=== PATIENT | female | born 1940 | race Caucasian/White ===

== ENCOUNTER 2024-01-07 13:49 | Inpatient (IN) | payer MEDICARE, OTHER ==
[2024-01-07 15:11] LABS: #Basophils 0.05 10x3/uL (0.0-0.2); %Basophils 0.3 % (0.0-1.0); %Eosinophils 0.2 % (0.0-10.0); %Lymphocytes 18.1 % (21.0-51.0); %Monocytes 6.7 % (0.0-10.0); %Neutrophils 73.9 % (42.0-75.0); Hematocrit 17.8 % (36.0-47.0); Hemoglobin 5.6 g/dL (12.0-16.0); Mean Corpuscular HGB CONC 31.5 g/dL (32.0-36.0); Mean Platelet Volume 9.7 fL (7.4-10.4); Platelet Count 473 10x3/uL (130-400); RBC Distribution Width 22.9 % (11.5-14.5)
[2024-01-07 15:22] LABS: INR-International Normal Ratio 1.1; Prothrombin Time 14.4 sec (12.0-14.7)
[2024-01-07 15:23] LABS: PTT 39.3 sec (22.9-36.1)
[2024-01-07 15:31] LABS: ALT (SGPT) 10 U/L (8-55); AST (SGOT) 20 U/L (5-34); Albumin 2.5 g/dL (3.4-4.8); Alkaline Phosphatase 100 U/L (40-110); Anion Gap 10 mmol/L (10-20); BUN (Urea Nitrogen) 15 mg/dL (9.8-20.1); Bilirubin, Total 0.5 mg/dL (0.2-1.2); Calc. Creatinine Clearance 0 mL/min (70-130); Calcium 8.8 mg/dL (7.8-10.44); Carbon Dioxide 30 mmol/L (23-31); Chloride 100 mmol/L (98-107); Estimated GFR 59; Globulin 3.6 g/dL (2.4-3.5); Glucose 118 mg/dL (83-110); Potassium 2.7 mmol/L (3.5-5.1); Protein, Total 6.1 g/dL (5.8-8.1); Sodium 137 mmol/L (136-145)
[2024-01-07 16:04] LABS: Iron 414 ug/dL (50-170); Iron Binding Capacity, Total 228 mcg/dL (265-497)
[2024-01-07] MEDS ORDERED: Potassium Chloride 20 MEQ TAB ONE (16:59)
[2024-01-07] MEDS ORDERED: Guaifenesin DM 100-10/5 ML UDCUP PO PRN (18:07)
[2024-01-07] MEDS ORDERED: Ondansetron PF 4 MG/2 ML Vial IVP PRN (18:07)
[2024-01-07] MEDS: Gabapentin 100 MG CAP PO SCH (21:24)
[2024-01-08 05:20] LABS: ALT (SGPT) 10 U/L (8-55); AST (SGOT) 28 U/L (5-34); Albumin 2.6 g/dL (3.4-4.8); Alkaline Phosphatase 104 U/L (40-110); Anion Gap 10 mmol/L (10-20); BUN (Urea Nitrogen) 11 mg/dL (9.8-20.1); Bilirubin, Total 1.2 mg/dL (0.2-1.2); Calc. Creatinine Clearance 53 mL/min (70-130); Calcium 8.6 mg/dL (7.8-10.44); Carbon Dioxide 28 mmol/L (23-31); Chloride 101 mmol/L (98-107); Estimated GFR 77; Globulin 3.7 g/dL (2.4-3.5); Glucose 113 mg/dL (83-110); Potassium 3.3 mmol/L (3.5-5.1); Protein, Total 6.3 g/dL (5.8-8.1); Sodium 136 mmol/L (136-145)
[2024-01-08 06:03] LABS: #Basophils 0.09 10x3/uL (0.0-0.2); %Basophils 0.5 % (0.0-1.0); %Eosinophils 0.3 % (0.0-10.0); %Lymphocytes 14.6 % (21.0-51.0); %Monocytes 6.8 % (0.0-10.0); %Neutrophils 75.8 % (42.0-75.0); Hematocrit 33.7 % (36.0-47.0); Hemoglobin 10.4 g/dL (12.0-16.0); Mean Corpuscular HGB CONC 30.9 g/dL (32.0-36.0); Mean Corpuscular Hemoglobin 25.9 pg (27.0-31.0); Mean Corpuscular Volume 83.8 fL (78.0-98.0); Mean Platelet Volume 9.2 fL (7.4-10.4); Platelet Count 464 10x3/uL (130-400); RBC Distribution Width 21.2 % (11.5-14.5); Red Blood Cell (RBC) Count 4.02 mill/uL (4.20-5.40)
[2024-01-08] MEDS: Ferrous Sulfate 325 MG TAB PO SCH (09:35)
[2024-01-08] MEDS: Cefdinir 300 MG CAP PO SCH (09:36)
[2024-01-08] MEDS: Pantoprazole DR 40 MG TAB PO SCH (09:36)
[2024-01-08] MEDS: Multivit, Therapeutic 1 TAB PO SCH (09:36)
[2024-01-08 10:38] VITALS: BMI 22.1
[2024-01-08] MEDS: Acetaminophen 325 MG TAB PO PRN (12:29)
[2024-01-08 14:11] LABS: Hematocrit 28.1 % (36.0-47.0); Hemoglobin 8.9 g/dL (12.0-16.0); Platelet Count 405 10x3/uL (130-400)
[2024-01-08 20:43] LABS: INR-International Normal Ratio 1.1; Prothrombin Time 14.4 sec (12.0-14.7)
[2024-01-08 20:44] LABS: PTT 31.2 sec (22.9-36.1)
[2024-01-08] MEDS: Potassium Chloride 20 MEQ TAB PO SCH (21:31)
[2024-01-08] MEDS: Potassium Chloride 20 MEQ in Premix 1 BAG IVPB SCH (21:32)
[2024-01-08] MEDS: Pantoprazole 40 MG VIAL IVP SCH (21:32)
[2024-01-08] MEDS: Potassium Chloride 40 MEQ in Premix 1 BAG IVPB SCH (21:44)
[2024-01-08 23:29] LABS: Hematocrit 29.8 % (36.0-47.0); Hemoglobin 9.2 g/dL (12.0-16.0); Platelet Count 399 10x3/uL (130-400)
[2024-01-09 05:34] LABS: Hematocrit 29.3 % (36.0-47.0); Hemoglobin 9.1 g/dL (12.0-16.0); Platelet Count 427 10x3/uL (130-400)
[2024-01-09 05:45] LABS: INR-International Normal Ratio 1.1; Prothrombin Time 14.4 sec (12.0-14.7)
[2024-01-09 05:46] LABS: PTT 33.1 sec (22.9-36.1)
[2024-01-09] MEDS: Potassium Chloride 20 MEQ TAB PO SCH (15:28)
[2024-01-09 17:17] VITALS: BP 133/74; TEMP 98.9
== END 2024-01-09 17:34 | disposition home or self-care (01) | DRG 812 ==
LOC: ERS 13:49 → MSONC 16:36 → OBSVTOIN 01-08 17:09
PROVIDERS: ADMIT Internal Medicine; ATTEND Internal Medicine
PROC: 30233N1 Transfusion of Nonautologous Red Blood Cells into Peripheral Vein, Percutaneous Approach (ICD-10-PCS; principal; 2024-01-07)
DX: D62 Acute posthemorrhagic anemia (principal); C79.9 Secondary malignant neoplasm of unspecified site; D50.9 Iron deficiency anemia, unspecified; D63.0 Anemia in neoplastic disease; M81.0 Age-related osteoporosis without current pathological fracture; C54.1 Malignant neoplasm of endometrium; E87.6 Hypokalemia; Z98.891 History of uterine scar from previous surgery; Z98.51 Tubal ligation status
CPT/HCPCS: 36415; 36416; 36430; 36591; 51798; 70553; 76376; 80053; 82728; 83010; 83540; 83550; 83615; 85014; 85018; 85025; 85046; 85049; 85610; 85730; 86850; 86900; 86901; 96365; 96366; 99212; 99284; A9579; G0378; G0463; J2470; J2916; J3480; J7050; P9016

== ENCOUNTER 2024-03-09 11:45 | Outpatient (CLI) | payer MEDICARE, OTHER | END 2024-03-09 11:46 | disposition home or self-care (01) | LOC: PET 11:45 | PROVIDERS: ATTEND Internal Medicine Hematology & Oncology | DX: C53.8 Malignant neoplasm of overlapping sites of cervix uteri (principal); R59.0 Localized enlarged lymph nodes | CPT/HCPCS: 78815; A9552 ==

== ENCOUNTER 2024-05-14 10:33 | Outpatient (CLI) | payer MEDICARE | END 2024-05-14 10:34 | disposition home or self-care (01) | LOC: SCSMRI 10:33 | PROVIDERS: ATTEND Internal Medicine Hematology & Oncology | DX: C53.8 Malignant neoplasm of overlapping sites of cervix uteri (principal); R94.02 Abnormal brain scan; R90.89 Other abnormal findings on diagnostic imaging of central nervous system | CPT/HCPCS: 70553; 76376 ==

== ENCOUNTER 2024-12-21 09:37 | Outpatient (CLI) | payer OTHER ==
[2024-12-21] MEDS ORDERED: Iopamidol 370 76% 100 ML VIAL ONE (14:49)
== END 2024-12-21 09:38 | disposition home or self-care (01) ==
LOC: CT 09:37
PROVIDERS: ATTEND Internal Medicine Hematology & Oncology
DX: C54.3 Malignant neoplasm of fundus uteri (principal); C53.8 Malignant neoplasm of overlapping sites of cervix uteri; D50.8 Other iron deficiency anemias; K76.9 Liver disease, unspecified; M79.89 Other specified soft tissue disorders
CPT/HCPCS: 71260; 74177; Q9967

== ENCOUNTER 2025-01-06 09:38 | Outpatient (CLI) | payer MEDICARE | END 2025-01-06 09:39 | disposition home or self-care (01) | LOC: SCSMRI 09:38 | PROVIDERS: ATTEND Internal Medicine Hematology & Oncology | DX: C54.3 Malignant neoplasm of fundus uteri (principal); C53.8 Malignant neoplasm of overlapping sites of cervix uteri; D50.8 Other iron deficiency anemias; M48.02 Spinal stenosis, cervical region | CPT/HCPCS: 72156 ==

== ENCOUNTER 2025-02-15 20:48 | Inpatient (IN) | payer OTHER ==
[~2025-02-15 20:48] MED LIST: Iopamidol-370 76% 500 ML MDV (1 ML CHARGE) ONE
[2025-02-15 22:13] LABS: #Basophils 0.04 10x3/uL (0.0-0.2); #Eosinophils Less than 0.03 10x3/uL (0.0-0.7); #Monocytes 0.83 10x3/uL (0.11-0.59); #Neutrophils 12.53 10x3/uL (1.40-6.50); %Basophils 0.3 % (0.0-1.0); %Eosinophils 0.1 % (0.0-10.0); %Lymphocytes 12.1 % (21.0-51.0); %Monocytes 5.4 % (0.0-10.0); %Neutrophils 81.3 % (42.0-75.0); Hematocrit 40.3 % (36.0-47.0); Hemoglobin 13.9 g/dL (12.0-16.0); Mean Corpuscular Hemoglobin 30.8 pg (27.0-31.0); Mean Corpuscular Volume 89.4 fL (78.0-98.0); Platelet Count 219 10x3/uL (130-400); Red Blood Cell (RBC) Count 4.51 mill/uL (4.20-5.40); White Blood Cell (WBC) Count 15.41 10x3/uL (4.8-10.8)
[2025-02-15 22:27] LABS: INR-International Normal Ratio 1.1; Prothrombin Time 14.7 sec (12.0-14.7)
[2025-02-15 22:28] LABS: PTT 56.4 sec (22.9-36.1)
[2025-02-15 22:29] LABS: ALT (SGPT) 23 U/L (Less than 34); AST (SGOT) 25 U/L (11-34); Albumin 3.0 g/dL (3.1-4.5); Alkaline Phosphatase 155 U/L (40-110); Anion Gap 19 mmol/L (10-20); BUN (Urea Nitrogen) 34 mg/dL (9.8-20.1); Bilirubin, Total 0.7 mg/dL (0.3-1.2); Calc. Creatinine Clearance 0 mL/min (70-130); Calcium 8.9 mg/dL (7.8-10.44); Carbon Dioxide 23 mmol/L (23-31); Chloride 102 mmol/L (98-107); Globulin 3.9 g/dL (2.4-3.5); Glucose 169 mg/dL (83-110); Potassium 4.0 mmol/L (3.5-5.1); Sodium 140 mmol/L (136-145)
[2025-02-16] MEDS ORDERED: Calcium Carbonate 500 MG ChewTAB PO PRN (01:02)
[2025-02-16] MEDS ORDERED: Melatonin 3 MG TAB PO PRN (01:02)
[2025-02-16] MEDS ORDERED: Ondansetron PF 4 MG/2 ML Vial IVP PRN (01:02)
[2025-02-16] MEDS ORDERED: Acetaminophen 325 MG TAB PO PRN (01:02)
[2025-02-16] MEDS ORDERED: Electrolyte Replacement Protocol 1 EACH FS SCH (01:15)
[2025-02-16] MEDS ORDERED: Magnesium 2 GM/50 ML(in water) 2 GM in Premix 1 BAG IVPB PRN (01:45)
[2025-02-16] MEDS ORDERED: PHOS-NAK 1 PKT PACK PO PRN (01:45)
[2025-02-16] MEDS ORDERED: Potassium Chloride 20 MEQ in Premix 1 BAG IVPB PRN (01:45)
[2025-02-16 02:50] VITALS: BMI 20.7
[2025-02-16 04:55] LABS: #Basophils 0.05 10x3/uL (0.0-0.2); #Eosinophils Less than 0.03 10x3/uL (0.0-0.7); #Monocytes 1.06 10x3/uL (0.11-0.59); #Neutrophils 9.71 10x3/uL (1.40-6.50); %Basophils 0.4 % (0.0-1.0); %Eosinophils 0.1 % (0.0-10.0); %Lymphocytes 19.0 % (21.0-51.0); %Monocytes 7.8 % (0.0-10.0); %Neutrophils 71.4 % (42.0-75.0); Hematocrit 38.4 % (36.0-47.0); Hemoglobin 12.6 g/dL (12.0-16.0); Mean Corpuscular Hemoglobin 30.7 pg (27.0-31.0); Mean Corpuscular Volume 93.4 fL (78.0-98.0); Platelet Count 180 10x3/uL (130-400); Red Blood Cell (RBC) Count 4.11 mill/uL (4.20-5.40); White Blood Cell (WBC) Count 13.61 10x3/uL (4.8-10.8)
[2025-02-16 05:17] LABS: ALT (SGPT) 18 U/L (Less than 34); AST (SGOT) 20 U/L (11-34); Albumin 2.8 g/dL (3.1-4.5); Alkaline Phosphatase 141 U/L (40-110); Anion Gap 16 mmol/L (10-20); BUN (Urea Nitrogen) 29 mg/dL (9.8-20.1); Bilirubin, Total 0.6 mg/dL (0.3-1.2); Calc. Creatinine Clearance 34 mL/min (70-130); Calcium 8.5 mg/dL (7.8-10.44); Carbon Dioxide 25 mmol/L (23-31); Chloride 105 mmol/L (98-107); Globulin 3.7 g/dL (2.4-3.5); Glucose 128 mg/dL (83-110); Potassium 4.0 mmol/L (3.5-5.1); Sodium 142 mmol/L (136-145)
[2025-02-16] MEDS: Mupirocin 1 GM TUBE NASAL DECOLONIZATION NASAL SCH (08:03)
[2025-02-16] MEDS: Pantoprazole 40 MG DR.TAB PO SCH (08:03)
[2025-02-16] MEDS: Ferrous Sulfate 325 MG TAB PO SCH (08:03)
[2025-02-16 08:33] LABS: Influenza A by NAA Not Detected (NotDetected); Influenza B by NAA Not Detected (NotDetected); SARS-CoV-2 NAA Rapid Test Not Detected (NotDetected)
[2025-02-16] MEDS: Multivitamin W/ Minerals 1 TAB PO SCH (09:46)
[2025-02-16] MEDS: Megestrol Acetate 800 MG/20 ML UDCUP PO SCH (09:46)
[2025-02-17 04:40] LABS: #Basophils 0.03 10x3/uL (0.0-0.2); #Eosinophils 0.05 10x3/uL (0.0-0.7); #Monocytes 1.08 10x3/uL (0.11-0.59); #Neutrophils 12.85 10x3/uL (1.40-6.50); %Basophils 0.2 % (0.0-1.0); %Eosinophils 0.3 % (0.0-10.0); %Lymphocytes 12.4 % (21.0-51.0); %Monocytes 6.7 % (0.0-10.0); %Neutrophils 79.8 % (42.0-75.0); Hematocrit 36.5 % (36.0-47.0); Hemoglobin 12.1 g/dL (12.0-16.0); Mean Corpuscular Hemoglobin 30.7 pg (27.0-31.0); Mean Corpuscular Volume 92.6 fL (78.0-98.0); Platelet Count 192 10x3/uL (130-400); Red Blood Cell (RBC) Count 3.94 mill/uL (4.20-5.40); White Blood Cell (WBC) Count 16.11 10x3/uL (4.8-10.8)
[2025-02-17 05:15] LABS: Anion Gap 10 mmol/L (10-20); BUN (Urea Nitrogen) 23 mg/dL (9.8-20.1); Calc. Creatinine Clearance 36 mL/min (70-130); Calcium 7.9 mg/dL (7.8-10.44); Carbon Dioxide 23 mmol/L (23-31); Chloride 104 mmol/L (98-107); Glucose 103 mg/dL (83-110); Potassium 3.8 mmol/L (3.5-5.1); Sodium 133 mmol/L (136-145)
[2025-02-17 11:14] VITALS: BMI 20.7
[2025-02-18 05:12] LABS: #Basophils 0.04 10x3/uL (0.0-0.2); #Eosinophils 0.25 10x3/uL (0.0-0.7); #Monocytes 0.82 10x3/uL (0.11-0.59); #Neutrophils 6.09 10x3/uL (1.40-6.50); %Basophils 0.4 % (0.0-1.0); %Eosinophils 2.7 % (0.0-10.0); %Lymphocytes 21.5 % (21.0-51.0); %Monocytes 8.9 % (0.0-10.0); %Neutrophils 66.0 % (42.0-75.0); Hematocrit 33.8 % (36.0-47.0); Hemoglobin 10.9 g/dL (12.0-16.0); Mean Corpuscular Hemoglobin 30.0 pg (27.0-31.0); Mean Corpuscular Volume 93.1 fL (78.0-98.0); Platelet Count 169 10x3/uL (130-400); Red Blood Cell (RBC) Count 3.63 mill/uL (4.20-5.40); White Blood Cell (WBC) Count 9.23 10x3/uL (4.8-10.8)
[2025-02-18 05:29] LABS: Anion Gap 13 mmol/L (10-20); BUN (Urea Nitrogen) 19 mg/dL (9.8-20.1); Calc. Creatinine Clearance 41 mL/min (70-130); Calcium 7.7 mg/dL (7.8-10.44); Carbon Dioxide 21 mmol/L (23-31); Chloride 104 mmol/L (98-107); Glucose 93 mg/dL (83-110); Potassium 3.8 mmol/L (3.5-5.1); Sodium 134 mmol/L (136-145)
[2025-02-19] MEDS: Albumin 25% 25 GM (100 mL) BOT IVPB SCH (01:49)
[2025-02-19 07:19] LABS: #Basophils Less than 0.03 10x3/uL (0.0-0.2); #Eosinophils 0.16 10x3/uL (0.0-0.7); #Monocytes 0.65 10x3/uL (0.11-0.59); #Neutrophils 5.32 10x3/uL (1.40-6.50); %Basophils 0.3 % (0.0-1.0); %Eosinophils 2.0 % (0.0-10.0); %Lymphocytes 21.0 % (21.0-51.0); %Monocytes 8.3 % (0.0-10.0); %Neutrophils 67.9 % (42.0-75.0); Hematocrit 29.9 % (36.0-47.0); Hemoglobin 9.8 g/dL (12.0-16.0); Mean Corpuscular Hemoglobin 30.8 pg (27.0-31.0); Mean Corpuscular Volume 94.0 fL (78.0-98.0); Platelet Count 155 10x3/uL (130-400); Red Blood Cell (RBC) Count 3.18 mill/uL (4.20-5.40); White Blood Cell (WBC) Count 7.84 10x3/uL (4.8-10.8)
[2025-02-19 07:40] LABS: Anion Gap 11 mmol/L (10-20); BUN (Urea Nitrogen) 30 mg/dL (9.8-20.1); Calc. Creatinine Clearance 41 mL/min (70-130); Calcium 7.9 mg/dL (7.8-10.44); Carbon Dioxide 22 mmol/L (23-31); Chloride 108 mmol/L (98-107); Glucose 100 mg/dL (83-110); Potassium 4.1 mmol/L (3.5-5.1); Sodium 137 mmol/L (136-145)
[2025-02-25 12:00] VITALS: TEMP 97.5
[2025-02-25 13:52] VITALS: BP 111/72
== END 2025-02-25 15:15 | DRG 189 ==
LOC: ERS 20:48 → SURG B 02-16 01:31
PROVIDERS: ADMIT Student in an Organized Health Care Education/Training Program; ATTEND Internal Medicine
PROC: 30233J1 Transfusion of Nonautologous Serum Albumin into Peripheral Vein, Percutaneous Approach (ICD-10-PCS; principal; 2025-02-18)
DX: J96.01 Acute respiratory failure with hypoxia (principal); N17.9 Acute kidney failure, unspecified; C79.82 Secondary malignant neoplasm of genital organs; R65.10 Systemic inflammatory response syndrome (SIRS) of non-infectious origin without acute organ dysfunction; Z60.2 Problems related to living alone; D72.829 Elevated white blood cell count, unspecified; I95.1 Orthostatic hypotension; Z91.041 Radiographic dye allergy status; Z88.5 Allergy status to narcotic agent; Z98.890 Other specified postprocedural states; Z98.891 History of uterine scar from previous surgery; Z79.899 Other long term (current) drug therapy
CPT/HCPCS: 36415; 71045; 71275; 78452; 80048; 80053; 83605; 83880; 84484; 85025; 85610; 85730; 87040; 87636; 93005; 93017; 93306; 94760; 96365; 97139; A9502; J0692; J1642; J2785; J7030; J7120; P9047; Q9967